=== PATIENT | female | born 1940 | race Caucasian/White ===

== ENCOUNTER 2016-09-20 12:09 | Emergency (ER) | payer MEDICARE ==
[~2016-09-20] VITALS: Ht 165.1 cm; Wt 87.0 kg
[~2016-09-20 12:09] MED LIST: ALPR0.5T99 PO; BENA10 PO; GABA300C3 PO; HYDR-2768 PO; HYDR-3580 PO; LEVO.1 PO; OPTI0.5D EACH EYE; POLY255S PO; SIMV20 PO; TAB-TAB PO; TURM500C3 PO; VITA100032 PO; VITATAB11 PO; Z.0.CPM; Z.0.WALKERFRONT
[2016-09-20 12:18] VITALS: BP 165/86; PULSE 76; RESP 18; TEMP 97.6; O2SAT 96
[2016-09-20] MEDS ORDERED: TRAM50TA PO ×2 (12:39→12:41)
--- NOTE | 2016-09-20 12:39 | PD ---
HPI Chief Complaint: Pain: Acute or Chronic Time Seen by Provider: 12:31 Travel History International Travel<30 days: No Contact w/Intl Traveler<30days: No Traveled to known affect area: No History of Present Illness HPI 76-year-old female presents to the emergency room for evaluation of left lateral hip pain for the past 4 days. Patient denies trauma or injury. States it started gradually and has progressively worsened. She has been taking Tylenol without significant relief in symptoms. She has history of chronic kidney disease and only has one kidney so she cannot take NSAIDs regularly. She took an Aleve yesterday with mild relief in symptoms. She also applied topical Salonpas patches with significant relief in symptoms. Patient denies radiation of symptoms. Denies paresthesias. No significant pain at rest. She has pain with walking and standing. Patient has history of bursitis in her right hip 5 years ago but has had no issues since receiving a steroid injection. She called her orthopedic surgeon who could not get her in for 3-4 weeks and she cannot wait that long because it is too significant. PFSH Past Medical History Arthritis: Yes Autoimmune Disease: No Blood Disorders: No Anxiety: Yes Depression: Yes Cancer: Yes (LEFT BREAST, MELANOMA) Cardiovascular Problems: Yes High Cholesterol: Yes Diminished Hearing: No Endocrine: Yes Gastrointestinal Disorders: No Glaucoma: No Genitourinary: Yes Hepatitis: No Hiatal Hernia: No Hypertension: Yes Immune Disorder: Yes Musculoskeletal: Yes (ARTHRITIS, DDD) Neurologic: No Psychiatric: No Reproductive: Yes (LEFT NEPHRECTOMY (BENIGN MASS)) Respiratory: No Immunizations Current: Yes Thyroid Disease: Yes Influenza Vaccination: Yes ?: Not Past Surgical History AICD: No Eye Surgery: Yes (CATARACT EXTRACT. ANGIE.) Genitourinary Surgery: Yes (LEFT NEPHRECTOMY) Gynecologic Surgery: Yes (HYSTERECTOMY, MASTECTOMY) Hysterectomy: Yes () Joint Replacement: No Pacemaker: No Thoracic Surgery: Yes (LEFT MASTECTOMY) Other Surgery: Yes (MELANOMA) Social History Alcohol Use: Yes (RARE) Tobacco Use: No (QUIT 1974) Substance Use: No Allergies-Medications (Allergen,Severity, Reaction): Coded Allergies: Prozac (Verified Allergy, Severe, hives/rash, 09/20/16) Hibiclens (Unverified Allergy, Unknown, RASH, 09/20/16) Reported Meds & Prescriptions Reported Meds & Active Scripts Active Cpm Machine (Cpm) Device 1 Unit Walker Front Wheel (Walkerfront) Device 1 Unit Hydrocodone/Acetaminophen 7.5 mg/325 mg 1 Tab 1 Tab PO Q4H PRN Reported Optive (Carboxymethylcellulose-Glyceri) 1 Ml Pavan 1 Drop EACH EYE BID Gabapentin 300 Mg Cap 1 Cap PO HS Miralax 225 Gm Bot (Polyethylene Glycol) 255 Gm Powd 255 Mg PO DAILY Turmeric (Turmeric (Curcuma Longa)) 500 Mg Cap 1 Cap PO BID Synthroid 100 mcg (Levothyroxine Sodium) 100 Mcg Tab 100 Mcg PO DAILY Lotensin 10 mg (Benazepril HCl) 10 Mg Tab 1 Tab PO DAILY Vitamin B Complex (B-Complex Vitamins) Tab 1 Tab PO DAILY Vitamin D (Cholecalciferol) 1,000 Unit Cap PO DAILY Multivitamin (Multivitamins) 1 Tab Tab 1 Tab PO DAILY Zocor (Simvastatin) 20 Mg Tab 20 Mg PO HS Hctz (Hydrochlorothiazide) 25 Mg Tab 25 Mg PO DAILY Xanax (Alprazolam) 0.5 Mg Tab 0.5 Mg PO DAILYPRN Review of Systems Except as stated in HPI: all other systems reviewed are Neg Physical Exam Narrative GENERAL: Well-nourished, well-developed female in no acute distress. Afebrile. Ambulatory. SKIN: Focused skin assessment warm/dry. No erythema or ecchymosis. HEAD: Normocephalic. EYES: No scleral icterus. No injection or drainage. NECK: Supple, trachea midline. No JVD or lymphadenopathy. CARDIOVASCULAR: Regular rate and rhythm without murmurs, gallops, or rubs. RESPIRATORY: Breath sounds equal bilaterally. No accessory muscle use. MUSCULOSKELETAL: No cyanosis, or edema. Full range of motion of bilateral lower extremities. No shortening or rotation. 2+ dorsalis pedis pulse in the left foot. There is tenderness to palpation of the left lateral hip. Data Data Last Documented VS Vital Signs Date Time Temp Pulse Resp B/P Pulse Ox O2 Delivery O2 Flow Rate FiO2 09/20/16 12:18 97.6 76 18 165/86 96 MDM Medical Decision Making Medical Screen Exam Complete: Yes Emergency Medical Condition: Yes Medical Record Reviewed: Yes Differential Diagnosis Bursitis, osteoarthritis, strain Narrative Course 76-year-old female with history of osteoarthritis presents to the emergency room for evaluation of left lateral hip pain for the past 4 days. Patient denies trauma or injury. She has been ambulatory since onset. No pain at rest. Pain occurs with walking and standing. No radiation. Left lower extremity is neurovascularly intact with 2+ dorsalis pedis pulse. Patient has tenderness to palpation of the left lateral hip. History and physical exam is consistent with trochanteric bursitis. No indication for imaging. Patient was informed she would benefit from steroid injection or pain management follow-up. She'll be given tramadol in the emergency room because she cannot take NSAIDs. She will be discharged with prescription for the same. Patient told to follow-up with primary care physician or return to the emergency room for worsening symptoms. She understands and agrees to plan. Diagnosis Primary Impression: Trochanteric bursitis of left hip Referrals: Primary Care Physician Patient Instructions: General Instructions, Hip Bursitis (ED) Additional Instructions: Rest and drink plenty of fluids. Take Tylenol as directed, as needed for pain. Take tramadol as directed, as needed for pain. Do not drink alcohol or drive while taking this medication. Apply ice to the affected area for 20 minutes at a time, as needed for pain and swelling. Follow-up with a primary care physician for referral to orthopedist or pain management. Return to the emergency room for worsening symptoms. Med/Other Pt SpecificInfo: Prescription(s) given Disposition: 01 DISCHARGE HOME Condition: Stable Camelia Marvin Sep 20, 2016 12:39
[2016-09-20] MEDS ORDERED: traMADol HCL 50 MG TAB PO ONE (12:45)
[2016-09-20] MEDS ORDERED: ZOCO20TA PO (13:05)
[2016-09-20] MEDS ORDERED: VITATAB11 PO (13:05)
[2016-09-20] MEDS ORDERED: CHOL1CAP6 PO (13:05)
[2016-09-20] MEDS ORDERED: ALPR0.5T3 PO (13:05)
[2016-09-20] MEDS ORDERED: POLY17PO3 PO (13:05)
[2016-09-20] MEDS ORDERED: LEVO.1 PO (13:05)
[2016-09-20] MEDS ORDERED: LOTE20TA PO (13:05)
[2016-09-20] MEDS ORDERED: MULTTAB67 PO (13:05)
== END 2016-09-20 13:12 | disposition home or self-care (01) ==
LOC: PHEFT 12:09
DX: M70.62 Trochanteric bursitis, left hip (principal)
CPT/HCPCS: 99283

== ENCOUNTER 2017-03-20 23:08 | Emergency (ER) | payer MEDICARE ==
[~2017-03-20] VITALS: Ht 165.1 cm; Wt 87.0 kg
[~2017-03-20 23:08] MED LIST changes: +ALPR0.5T3 PO; -ALPR0.5T99 PO; +ARTIDRO EACH EYE; -BENA10 PO; +D31000CA3 PO; -GABA300C3 PO; -HYDR-2768 PO; -HYDR-3580 PO; +LOTE20TA PO; +MULTTAB67 PO; +NAPR220C22 PO; -OPTI0.5D EACH EYE; +POLY17PO3 PO; -POLY255S PO; -SIMV20 PO; -TAB-TAB PO; -TURM500C3 PO; -VITA100032 PO; -Z.0.CPM; -Z.0.WALKERFRONT; +ZOCO20TA PO
[2017-03-20 23:25] VITALS: BP 166/103; PULSE 95; RESP 18; TEMP 99.3; O2SAT 97
[2017-03-21 01:16] VITALS: BP 157/89
--- NOTE | 2017-03-21 01:19 | PD ---
HPI Chief Complaint: ENT Complaint Time Seen by Provider: 01:14 Travel History International Travel<30 days: Yes Contact w/Intl Traveler<30days: Yes Name of Country Traveled to: [place], [facility] [place] Traveled to known affect area: No History of Present Illness HPI The patient is a 76-year-old female that complains of primarily left-sided sore throat for 2 days. At 1 PM yesterday she took 500 mg of amoxicillin and 5 hours later she took another dose. The pain is on the left side of the throat and goes up to her left ear. She thinks she has had a low-grade fever at home. [place] of [place] cruise ship. She does not have any significant cough, nausea, vomiting or diarrhea. She had the amoxicillin left over from her dentist and she will need to replace these tablets before she gets dental work. PFSH Past Medical History Arthritis: Yes Autoimmune Disease: No Blood Disorders: No Anxiety: Yes Depression: Yes Cancer: Yes (LEFT BREAST, MELANOMA) Cardiovascular Problems: Yes High Cholesterol: Yes Diminished Hearing: No Endocrine: Yes Gastrointestinal Disorders: Yes (CONSTIPATION) Glaucoma: No Genitourinary: Yes Hepatitis: No Hiatal Hernia: No Hypertension: Yes Immune Disorder: Yes Medical other: No Musculoskeletal: Yes (ARTHRITIS, DDD) Neurologic: No Psychiatric: No Reproductive: Yes (LEFT NEPHRECTOMY (BENIGN MASS)) Respiratory: No Immunizations Current: Yes Thyroid Disease: Yes Tetanus Vaccination: < 5 Years Influenza Vaccination: Yes Past Surgical History AICD: No Eye Surgery: Yes (CATARACT EXTRACT. ANGIE.) Genitourinary Surgery: Yes (LEFT NEPHRECTOMY) Gynecologic Surgery: Yes (HYSTERECTOMY, MASTECTOMY) Hysterectomy: Yes Joint Replacement: No Pacemaker: No Thoracic Surgery: Yes (LEFT MASTECTOMY) Other Surgery: Yes (MELANOMA) Social History Alcohol Use: Yes (RARE) Tobacco Use: No (QUIT 1975) Substance Use: No Allergies-Medications (Allergen,Severity, Reaction): Coded Allergies: fluoxetine (Verified Allergy, Severe, hives/rash, 03/20/17) chlorhexidine (Verified Allergy, Unknown, RASH, 03/20/17) Reported Meds & Prescriptions Reported Meds & Active Scripts Active Reported Artificial Tears Opth Drops (Propylene Glycol-Glycerin Opth Drops) 1-0.3% Drops 1 Drop EACH EYE QID PRN Aleve (Naproxen Sodium) 220 Mg Capsule 1 Cap PO DAILY Synthroid (Levothyroxine Sodium) 100 Mcg Tab 100 Mcg PO DAILY Zocor (Simvastatin) 20 Mg Tab 20 Mg PO DAILY Miralax (Polyethylene Glycol 3350) 17 Gm Powd.pack 1 Cap PO DAILY Multiple Vitamin 1 Tab 1 Tab PO DAILY Vitamin D-3 (Cholecalciferol) 1,000 Unit Cap 1 Cap PO DAILY Lotensin (Benazepril HCl) 20 Mg Tab 10 Mg PO DAILY Vitamin B Complex (B-Complex Vitamins) 1 Tab 1 Caplet PO DAILY Alprazolam 0.5 Mg Tab 0.5 Mg PO DAILY Review of Systems Except as stated in HPI: all other systems reviewed are Neg Physical Exam Narrative GENERAL: Well-nourished, well-developed patient. SKIN: Focused skin assessment warm/dry. HEAD: Normocephalic. EYES: No scleral icterus. No injection or drainage. NECK: Supple, trachea midline. No JVD or lymphadenopathy. CARDIOVASCULAR: Regular rate and rhythm without murmurs, gallops, or rubs. RESPIRATORY: Breath sounds equal bilaterally. No accessory muscle use. GASTROINTESTINAL: Abdomen soft, non-tender, nondistended. MUSCULOSKELETAL: No cyanosis, or edema. BACK: Nontender without obvious deformity. No CVA tenderness. ENT: The tympanic membranes are clear but the throat shows an early peritonsillar abscess on the left. This abscess is not quite ready to drain and the patient does not want me to drain it now. Data Data Last Documented VS Vital Signs Date Time Temp Pulse Resp B/P (MAP) Pulse Ox O2 Delivery O2 Flow Rate FiO2 03/21/17 00:21 18 03/20/17 23:25 99.3 95 166/103 (124) 97 Orders Orders Group A Rapid Strep Screen (03/21/17 00:03) Strep Culture (Group A) (03/21/17 00:05) MDM Medical Decision Making Medical Screen Exam Complete: Yes Emergency Medical Condition: Yes Medical Record Reviewed: Yes Differential Diagnosis Strep pharyngitis, peritonsillar abscess, viral pharyngitis Narrative Course The strep screen is negative however the fact that she took amoxicillin 12 hours prior to the strep screen probably caused the strep screen to be negative. She does have a peritonsillar abscess and she does need antibiotics. She prefers amoxicillin 500 mg because she states she gets these free at [facility]. Diagnosis Primary Impression: Peritonsillar abscess Additional Instructions: As we discussed, despite antibiotics your throat may get worse. If he gets worse he may need to have the abscess drained. We can do it here or you can follow-up with an industrial photographer (ENT doctor). Med/Other Pt SpecificInfo: Prescription(s) given Disposition: 01 DISCHARGE HOME Condition: Stable Kirill Mcdonnell MD Mar 21, 2017 01:19
[2017-03-21] MEDS ORDERED: AMOX500T PO (01:22)
[2017-03-21] MEDS ORDERED: AMOXICILLIN 875 MG TAB PO ONE (01:30)
== END 2017-03-21 01:47 | disposition home or self-care (01) ==
LOC: PHED 23:08
DX: J36 Peritonsillar abscess (principal); M19.90 Unspecified osteoarthritis, unspecified site; F41.9 Anxiety disorder, unspecified; F32.9 Major depressive disorder, single episode, unspecified; E78.00 Pure hypercholesterolemia, unspecified; I10 Essential (primary) hypertension; E07.9 Disorder of thyroid, unspecified; Z79.899 Other long term (current) drug therapy
CPT/HCPCS: 87081; 87880; 99283